=== PATIENT | female | born 1940 | race Caucasian/White ===

== ENCOUNTER 2016-11-23 05:27 | Day surgery (SDC) | payer MEDICARE, OTHER ==
[2016-11-22 15:55] LABS: HEMATOCRIT 41.3 % (36.0-48.0); HEMOGLOBIN 13.7 g/dL (12-16); MCH 27.6 pg (26.0-34.0); MCHC 33.2 g/dL (31.0-37.0); MCV 83.1 fL (80.0-100.0); MEAN PLATELET VOLUME 10.6 fL (7.4-10.4); RBC 4.97 10x6/uL (4.00-5.40); RDW 13.3 % (11.5-14.5)
[~2016-11-23 05:27] MED LIST: CALTRATE 600 M600 M1 PO; CARAFATE1 G PO; PREDNISONE1 MG PO; PRILOSEC20 MG PO; STERAPRED 5MG 125 MG PO; STERAPRED 5MG 65 M1 PO
[2016-11-23 10:23] VITALS: BP 139/85; BMI 28.4
--- NOTE | 2016-11-23 15:44 | NUR ---
1533 BACK FROM EGD WITH ARGON. ALERT AND WAKING UP, RESP EVEN AND NONLABORED. DENIES PAIN OR NAUSEA. HOB ELEVATED. SAT 90% ON ROOM AIR INCREASED TO 3 L N/C SAT TO 96 %.
--- NOTE | 2016-11-23 16:14 | NUR ---
1603 TOLERATING FULL LIQUIDS REQUESTING ICE SMALL CUP GIVEN. NO NAUSEA OR PAIN. WAKING UP GOOD AFTER REVERSAL.HOB ELEVATED.
--- NOTE | 2016-11-23 17:07 | NUR ---
1633 AWAKE AND VERBAL STILL SIPPING ON COLA. RESP EVEN AND NONLABORED.
--- NOTE | 2016-11-23 17:09 | NUR ---
1700 IV DCD CATHETER INTACT. DISCHARGE INSTRUCTIONS GIVEN AND APPOINTMENT GONE OVER. VERBALLY UNDERSTANDS.
--- NOTE | 2016-11-23 17:10 | NUR ---
1710 TO HOME VIA W/C.
--- NOTE | 2016-11-24 14:00 | HP ---
PATIENT: AUGUSTA MENDEZ MEDICAL RECORD: [id number] ACCOUNT: [id number] LOCATION:[facility] : 42 ADMISSION DATE: 11/23/16 HISTORY AND PHYSICAL EXAMINATION HISTORY OF PRESENT ILLNESS: The patient is here for Rodriguez's biopsy and ablation. She is here for a surveillance upper endoscopy with biopsies due to history of Rodriguez's. Back on 11/17/2015, the patient had an EGD. It revealed esophageal biopsies consistent with Rodriguez esophagus, negative for dysplasia. There were some cardiac stomach biopsies, which revealed hyperplastic polyps of a fundal type. These were Helicobacter pylori negative. The risks, possible complications and alternatives to procedure were explained to the patient. She elects to proceed. HOME MEDICATIONS: Sucralfate, Prilosec, Caltrate 600 as well as prednisone. SOCIAL HISTORY: Ex-smoker. ALLERGIES: CODEINE, DEMEROL AND DARVON. PAST MEDICAL AND SURGICAL HISTORY: Bronchitis, COPD, sleep apnea, does not use CPAP, gastroesophageal reflux, polymyositis, connective tissue disorder, wrist surgery, hysterectomy, appendectomy and psoriasis. PHYSICAL EXAMINATION: GENERAL: The patient does not appear acutely ill. She does not appear chronically ill. VITAL SIGNS: Reviewed. HEAD: External ears appear normal. EYES: Extraocular movements are intact. NECK: Trachea is midline. CHEST: No intercostal retractions. PULMONARY: Nonlabored, no stridor. EXTREMITIES: No peripheral cyanosis. INTEGUMENT: There is a rash. IMPRESSION: History of Rodriguez's without dysplasia, desiring ablation. PLAN: EGD with biopsies and Rodriguez's ablation with the argon plasma correctional counselor. TRANSINT:[id number] Voice Confirmation ID: [id number] DOCUMENT ID: [id number] NORA ULDWIG MD at 1400 CC: NEHA CONDE DO [id number] DICTATION DATE: 11/23/16 1516 MANAGER OF COMMUNITY RELATIONS: 11/23/16 1541 [facility] 11/23/16 [id number] [place] [id number]
--- NOTE | 2016-11-24 14:00 | OP ---
PATIENT NAME: AUGUSTA MENDEZ MEDICAL RECORD: [id number] :42 LOCATION:[facility].OPS ADMISSION DATE: SURGEON: NORA LUDWIG MD DATE OF OPERATION: 11/23/2016 PREOPERATIVE DIAGNOSES: 1. History of gastric polyps. 2. History of Rodriguez's esophagus. POSTOPERATIVE DIAGNOSES: 1. History of gastric polyps. 2. History of Rodriguez's esophagus with regrowth of some of the gastric polyps as well as persistence of Rodriguez's esophagus. PROCEDURES: 1. Esophagogastroduodenoscopy with distal esophageal as well as gastric fundal polyps in the cardia of the stomach and antral biopsies. 2. Rodriguez's ablation utilizing the argon plasma radar technician with the esophageal setting in the forced mode. ENDOSCOPIC COURSE: The patient was conveyed to the operating room electively on 11/23/2016. General anesthesia was induced by the anesthesia staff. A bite block was inserted. A gastroscope was inserted into the mouth. It was advanced easily into the hypopharynx. The esophagus was easily intubated as were the stomach and duodenum. Upon withdrawal, retroflexed and angulus views were obtained. Antral biopsies were obtained. Portions of the distal esophagus in an area where there appeared to be Rodriguez's was biopsied utilizing the cold endoscopic biopsy forceps including some cardial polyps. Utilizing the argon plasma radar technician, I then cauterized these polyps utilizing the esophageal setting in the forced mode. I also ablated all the Rodriguez's that I could identify utilizing the argon plasma radar technician with the esophageal setting in the forced mode. At no time was there any apparent full thickness injury to the esophagus. The endoscope was then withdrawn under direct vision. I will see the patient in my office in 2-3 weeks. I will plan for her next surveillance endoscopy to occur in the GI lab in 2 years. TRANSINT:[id number] Voice Confirmation ID: [id number] DOCUMENT ID: [id number] NORA LUDWIG MD at 1400 CC: NEHA CONDE DO [id number] DICTATION DATE: 11/23/16 1520 CARE PROCESS MANAGER: 11/23/[address] [facility] 11/23/16 [place] [id number]
== END 2016-11-23 17:10 | disposition home or self-care (01) ==
LOC: D.OPS 05:27 → D.PAN 10:45 → D.OPS 12:45 → D.PAN 12:45 → D.OPS 17:10
PROVIDERS: Anesthesiology
DX: K22.70 Barrett's esophagus without dysplasia (principal); J44.9 Chronic obstructive pulmonary disease, unspecified; G47.30 Sleep apnea, unspecified; K21.9 Gastro-esophageal reflux disease without esophagitis; Z01.812 Encounter for preprocedural laboratory examination

== ENCOUNTER → 2018-07-17 18:43 | Outpatient (CLI) | payer MEDICARE ==
[2018-07-19 09:14] LABS: IMMUNOGLOBULIN A 150 mg/dL (64-422); IMMUNOGLOBULIN G 905 mg/dL (700-1600); IMMUNOGLOBULIN M 249 mg/dL (26-217)
[2018-07-20 10:17] LABS: ANGIOTENSIN CONVERTING ENZYME 71 U/L (14-82)
== END | disposition home or self-care (01) ==
LOC: D.LABREF 18:43
PROVIDERS: ATTEND Internal Medicine Pulmonary Disease
DX: J95.851 Ventilator associated pneumonia (principal)

== ENCOUNTER 2018-07-25 06:41 | Outpatient (CLI) | payer MEDICARE, OTHER ==
[~2018-07-25] VITALS: Ht 154.9 cm; Wt 65.9 kg
[2018-07-25 07:02] LABS: BASOPHILS 0.6 % (0-2); EOSINOPHILS 3.5 % (0-7); HEMATOCRIT 42.5 % (36.0-48.0); HEMOGLOBIN 14.4 g/dL (12-16); IMMATURE GRANULOCYTES 0.3 % (0-5); LYMPHOCYTES 21.8 % (15-50); MCH 27.9 pg (26.0-34.0); MCHC 33.9 g/dL (31.0-37.0); MCV 82.2 fL (80.0-100.0); MEAN PLATELET VOLUME 9.3 fL (7.4-10.4); MONOCYTES 11.1 % (2-11); NEUTROPHILS 62.7 % (40-80); PLATELET COUNT 189 10x3/uL (130-400); RBC 5.17 10x6/uL (4.00-5.40); WBC 6.9 10x3/uL (4.8-10.8)
[2018-07-25 07:32] LABS: INR 1.03 (0.85-1.17)
[2018-07-25] MEDS ORDERED: ZANTAC300 MG PO (08:17)
[2018-07-25 08:19] VITALS: Ht 154.9 cm; Wt 65.9 kg
--- NOTE | 2018-07-25 11:37 | NUR ---
RECIEVED FULL LIQ TRAY TOLERATED A FEW ICE CHIPS
--- NOTE | 2018-07-25 11:54 | NUR ---
1155 PT C/O RIGHT LATERAL CHEST PAIN A 1/10 BUT WHEN SHE COUGHS IT IS A 10/10. NO SOB. PT HAS CHILLS AND TEMP 98 PT GIVEN WARM BLANKETS. DR VIVEROS NOTIFIED. ORDERS GIVEN
--- NOTE | 2018-07-25 12:13 | NUR ---
PT DROWSY BUT EASY TO ARROUSE. NO SOB NOTED.
[2018-07-25 12:53] LABS: MACROPHAGES BF 4 %; NEUT - BF 92 %
--- NOTE | 2018-07-25 13:04 | NUR ---
DR VIVEROS CALLED PT VOMITING A SMALL AMT. WAITING FOR RETURN CALL
--- NOTE | 2018-07-25 14:23 | NUR ---
DR TURCIOS CALLED AND PT VOMITED FOR THE SECOND TIME. IV ALREADY REMOVED AND ORDERS GIVEN FOR SL ZOFRAN AND PRTABLE CXR FOR RIGHT SIDED PAIN.
--- NOTE | 2018-07-25 14:24 | NUR ---
LUNGS CLEAR BILATERALLY
--- NOTE | 2018-07-25 19:17 | NUR ---
1000 RECIEVED REPORT FROM IZABELLA CASTELLANOS. PT HAS O2L NC NPO UNTIL 1130 FAMILY AT BEDSIDE 1130 TOLERATING A FEW ICE CHIPS 1140 FULL LIQ TRAY RECIEVED. C/O PAIN TO LATERAL SIDE OF RIGHT CHEST. NO SOB. 1150 DR VIVEROS OFFICE CALLED ORDERS GIVEN FOR IB PROFEN.600MG PO NO FEVER NOTED. 1205 MEDICATED WITH IBPROFEN 600MG. 1300 PT SLEEPING OFF AND ON BUT MORE AWAKE, VOMITED X1 APPRO 100ML. 1410 VOMITED AGAIN. OFFICE CALLED AND NOTIFIED, CHEST CLEAR ON ASCULTATION, 1425 MEDICATED FOR NAUSEA. 1440 PCXR DONE TOLERATED WELL. 1510 DR VIVEROS OFFICE CALLED AND CXR CLEAR . ORDERS GIVEN TO DISCHARGE AND RX WILL BE CALLED IN BY DRS OFFICE. PT NOTIFIED
[2018-07-26 17:09] LABS: ACID FAST SMEAR Negative (()); AFB SPECIMEN PROCESSING Concentration (())
[2018-07-27 12:14] LABS: FUNGUS STAIN Final report (())
[2018-07-30 18:07] LABS: FUNGUS MYCOLOGY CULTURE Preliminary report (())
== END 2018-07-25 15:10 | disposition home or self-care (01) ==
LOC: D.OPS 06:41
PROVIDERS: ATTEND Internal Medicine Pulmonary Disease
DX: J95.851 Ventilator associated pneumonia (principal)

== ENCOUNTER → 2018-07-31 18:05 | Outpatient (CLI) | payer MEDICARE ==
[2018-07-25 08:19] VITALS: BMI 27.4
[~2018-07-31 18:05] MED LIST changes: +ZANTAC300 MG PO
[2018-08-02 10:16] LABS: ANA REFLEX - DIRECT Negative (Negative)
[2018-08-05 15:07] LABS: FUNGAL - ASP FLAVUS Negative (Neg:<1:1); FUNGAL - ASP NIGER Negative (Neg:<1:1); FUNGAL - ASPER FUMIGATUS Negative (Neg:<1:1)
[2018-08-06 16:09] LABS: ANCA - ANTIMYELOPEROXIDASE <9.0 U/mL (0.0-9.0); ANCA - ANTIPROTEINASE 3 <3.5 U/mL (0.0-3.5); ANCA - ATYPICAL <1:20 titer (Neg:<1:20); ANCA - CYTOPLASMIC <1:20 titer (Neg:<1:20); ANCA - PERINUCLEAR <1:20 titer (Neg:<1:20)
== END | disposition home or self-care (01) ==
LOC: D.LABREF 18:05
PROVIDERS: ATTEND Internal Medicine Pulmonary Disease
DX: J95.851 Ventilator associated pneumonia (principal); J47.9 Bronchiectasis, uncomplicated

== ENCOUNTER → 2018-09-20 14:32 | Outpatient (CLI) | payer MEDICARE ==
[2018-07-25 08:19] VITALS: BMI 27.4
== END | disposition home or self-care (01) ==
LOC: D.RT 11:00
PROVIDERS: ATTEND Internal Medicine Pulmonary Disease
DX: R06.00 Dyspnea, unspecified (principal); J47.9 Bronchiectasis, uncomplicated

== ENCOUNTER → 2018-12-18 10:11 | Outpatient (CLI) | payer MEDICARE ==
[2018-07-25 08:19] VITALS: BMI 27.4
== END | disposition home or self-care (01) ==
LOC: D.CT 10:11
PROVIDERS: ATTEND Internal Medicine Pulmonary Disease
DX: J47.9 Bronchiectasis, uncomplicated (principal)

== ENCOUNTER → 2019-06-26 10:57 | Outpatient (CLI) | payer MEDICARE, BC ==
[2018-07-25 08:19] VITALS: BMI 27.4
== END | disposition home or self-care (01) ==
LOC: D.CT 10:57
PROVIDERS: ATTEND Internal Medicine Pulmonary Disease
DX: J47.9 Bronchiectasis, uncomplicated (principal)

== ENCOUNTER → 2020-04-24 09:48 | Outpatient (CLI) | payer MEDICARE, BC ==
[2018-07-25 08:19] VITALS: BMI 27.4
== END | disposition home or self-care (01) ==
LOC: D.LAB 09:48
PROVIDERS: ATTEND Internal Medicine Pulmonary Disease
DX: Z11.52 Encounter for screening for COVID-19 (principal)

== ENCOUNTER → 2020-04-28 14:34 | Outpatient (CLI) | payer MEDICARE, BC ==
[2018-07-25 08:19] VITALS: BMI 27.4
== END | disposition home or self-care (01) ==
LOC: D.RT 02-19 10:00
PROVIDERS: ATTEND Internal Medicine Pulmonary Disease
DX: J45.909 Unspecified asthma, uncomplicated (principal)

== ENCOUNTER → 2020-05-25 09:05 | Outpatient (CLI) | payer MEDICARE, BC ==
[2018-07-25 08:19] VITALS: BMI 27.4
[2020-05-25 09:40] LABS: ALBUMIN 3.6 g/dL (3.4-5.0); BILIRUBIN - DIRECT 0.1 mg/dL (0.00-0.30); BILIRUBIN - INDIRECT 0.22 mg/dL (0.00-1.00); BILIRUBIN - TOTAL 0.32 mg/dL (0.2-1.3); PROTEIN - SERUM 7.6 g/dL (6.4-8.2)
== END | disposition home or self-care (01) ==
LOC: D.US 08:15
PROVIDERS: ATTEND Internal Medicine Gastroenterology
DX: K76.0 Fatty (change of) liver, not elsewhere classified (principal)